=== PATIENT | male | born 1965 | race African-American/Black ===

== ENCOUNTER 2021-10-12 16:05 | Inpatient (IN) | payer SELFPAY ==
[2021-10-12] VITALS (8 sets, daily range): BP systolic 104–201; BP diastolic 67–90; PULSE 78–108; RESP 16–23; TEMP 36.2–36.6; O2SAT 89–100; BMI 51.2
--- NOTE | ~2021-10-12 | XR_ITS ---
EXAMINATION: XR chest 1V portable INDICATION: Hypoxia TECHNIQUE: Portable AP chest at 2113 hours COMPARISON: 08/03/2006 FINDINGS: There are patchy opacities throughout all lung zones. There is no pleural effusion or pneum othorax. Cardiomegaly is noted. There are changes of posterior fusion in the upper thoracic spine. IMPRESSION: 1. Diffuse lung disease, consistent with pneumonia and/or pulmonary edema. 2. Cardiomegaly. Reviewed, dictated and finalized at location F.
[2021-10-12] MEDS: SODIUM CHLORIDE 0.9% IV 1,000 ML 999 ML IV CONT (16:51)
[2021-10-12 16:52] LABS: Basophils Absolute Auto 0.1 K/mm3 (0.0-0.1); Basophils Percent Auto 0.8 % (0.2-1.2); Eosinophils Absolute Auto 0.3 K/mm3 (0-0.3); Eosinophils Percent Auto 2.8 % (0-4.4); Hematocrit 42.9 % (42.0-52.0); Hemoglobin 14.4 g/dL (14.0-18.0); Immature Granulocyte Absolute 0.04 K/mm3 (0.00-0.031); Immature Granulocyte Percent A 0.4 % (0-0.5); Lymphocytes Percent Auto 25.8 % (18.3-44.2); Mean Corpuscular HGB Conc 33.6 g/dl (32-36); Mean Corpuscular Hemoglobin 27.6 pg (26-34); Mean Corpuscular Volume 82.3 fl (80-100); Mean Platelet Volume 10.6 fl (7.4-10.4); Monocytes Absolute Auto 0.9 K/mm3 (0.1-0.6); Neutrophils Absolute Auto 5.4 K/mm3 (1.3-6.7); Neutrophils Percent Auto 60.2 % (45.5-73.1); Platelet Count Result 221 k/mm3 (150-375); Red Blood Count 5.21 M/mm3 (4.6-6.20); White Blood Count 8.9 K/mm3 (4.5-10.0)
[2021-10-12 16:56] LABS: Alveolar/Arterial O2 Gradient 26.2 mmHg; Base Excess ABG 3.4 mEq/l (+/-2.0); Device ROOM AIR; Fractional Inspired Oxygen 21 %; Modified Allen's Test Pass; Oxyhemoglobin 88.4 % THb (90.0-100.0); PO2 ABG 60.1 mmHg (80.0-100.0); PO2 FiO2 Ratio Arterial Blood 2.86 %; Site Drawn RIGHT RADIAL; Total Hemoglobin 15.3 g/dL (12.0-18.0)
[2021-10-12 16:59] LABS: Glucose Point of Care > 500 mg/dl (65-105)
[2021-10-12 17:06] LABS: Alanine Aminotransferase 41 U/L (4-50); Albumin Level 4.1 g/dL (3.5-5.1); Alkaline Phosphatase 225 U/L (38-126); Anion Gap 6 mmol/L (8-16); Aspartate Amino Transferase 38 U/L (17-59); Bilirubin,Total 0.2 mg/dL (0.2-1.3); Blood Urea Nitrogen 31 mg/dL (9-20); Calcium 8.9 mg/dL (8.4-10.2); Carbon Dioxide 30 mmol/L (22-30); Chloride 97 mmol/L (98-107); Estimated CRCL calculation 90 ml/min; Estimated Glomerular Filt Rate > 60; Potassium 4.7 mmol/L (3.4-5.0); Sodium 133 mmol/L (137-145)
[2021-10-12 17:06] LABS: Appearance Urine Clear (Clear); Bilirubin Urine Negative (Negative); Color Urine Yellow (Yellow); Glucose Urine UA 3+ mg/dL (Negative); Ketones Urine Negative (Negative); Leukocyte Esterase Ur Negative LEU/UL (Negative); Nitrate Urine Negative (Negative); Protein Urine Negative (Negative); Specific Grav Ur <= 1.005 (1.001-1.035); Urobilinogen Urine 0.2 mg/dL (<2.0)
[2021-10-12 17:14] LABS: Glucose 633 mg/dL (65-110)
[2021-10-12 17:21] LABS: Add Urine Microscopic? YES; Blood Urine Trace-Intact (Negative)
[2021-10-12 17:26] LABS: Mucus Urine Rare /lpf; RBC Urine 0-2 /hpf (0-2); WBC Urine 0-3 /hpf
--- NOTE | 2021-10-12 17:52 | ED.GENADULT ---
HPI - General Adult General Chief complaint: Recheck/Abnormal Lab/Rx Stated complaint: high blood sugar Time Seen by Provider: 10/12/21 16:33 Source: patient Mode of arrival: ambulatory Limitations: no limitations History of Present Illness HPI narrative: 56-year-old referred from urgent care with elevated blood sugar. Patient states for the past 1 week he has been having poorly for GI, polyuria and polydipsia. patient states that he has not seen a primary doctor for past 2-1/2 years. He denies any fever or chills. No history of nausea or vomiting. He states that he had a headache last night which is resolved Onset (ago): week(s) (1) Associated symptoms: denies other symptoms Treatments prior to arrival: none Related Data Allergies Allergy/AdvReac Type Severity Reaction Status Date / Time No Known Allergies Allergy Verified 10/12/21 16:20 Review of Systems Review of Systems: All systems reviewed & are unremarkable except as noted in HPI and below Constitutional: Constitutional: Reports no additional constitutional complaints Eyes: Eyes: Reports no additional eye complaints ENT: Reports system reviewed and no additional complaints, except as documented Respiratory: Respiratory: Reports no additional respiratory complaints Gastrointestinal: Gastrointestinal: Reports no additional gastrointestinal complaints Genitourinary: Genitourinary: Reports no additional male genitourinary complaints Musculoskeletal: Musculoskeletal: Reports no additional musculoskeletal complaints Integumentary/Breasts: Skin/Breast: Reports system reviewed and no additional complaints, except as docu Neurologic: Reports system reviewed and no additional complaints, except as documented Psychiatric: Psychiatric: Reports no additional psychiatric complaints [facility] Family History Family History Mother Family history of malignant neoplasm of breast in first degree relative Social History Social History Smoking status: Never smoker Alcohol intake: never Exam Narrative: GENERAL: Well-appearing, morbidly obese, and in no acute distress. HEAD: Normocephalic, atraumatic. EYES: PERRLA and EOMI. NECK: Supple. CHEST: Clear to auscultation. No respiratory distress. HEART: Regular rate and rhythm. No murmur heard. Normal peripheral pulses. ABDOMEN: Soft, nontender, morbidly obese abdomen, normal active bowel sounds. EXTREMITIES: Normal range of motion. No edema. SKIN: Warm, dry, no rash. NEURO: No focal deficits. Alert and oriented x3. PSYCH: Normal mood and affect. Course Course Emergency Course: Patient is asymptomatic at this time. Informed him about his lab work. We will start him on IV insulin. Discussed with Dr. Warner he agreed to admit the patient discussed with Francy agreed with admission Vital Signs Vital signs: Vital Signs Temperature 36.2 C L 10/12/21 16:09 Pulse Rate 78 10/12/21 16:09 Respiratory Rate 18 10/12/21 16:09 Blood Pressure 201/78 H 10/12/21 16:09 Pulse Oximetry 100 10/12/21 16:09 Temperature 36.2 C L 10/12/21 16:09 Pulse Rate 104 H 10/12/21 16:36 Respiratory Rate 23 H 10/12/21 16:36 Blood Pressure 146/90 H 10/12/21 16:36 Pulse Oximetry 94 10/12/21 16:36 Medical Decision Making Vital Signs Vital Signs: Vital Signs Temperature 36.2 C L 10/12/21 16:09 Pulse Rate 78 10/12/21 16:09 Respiratory Rate 18 10/12/21 16:09 Blood Pressure 201/78 H 10/12/21 16:09 Pulse Oximetry 100 10/12/21 16:09 Temperature 36.2 C L 10/12/21 16:09 Pulse Rate 104 H 10/12/21 16:36 Respiratory Rate 23 H 10/12/21 16:36 Blood Pressure 146/90 H 10/12/21 16:36 Pulse Oximetry 94 10/12/21 16:36 Lab Data Result diagrams: 10/12/21 16:45 10/12/21 16:45 Labs: Lab Results 10/12/21 10/12/21 10/12/21 Range/Units 16:09 16:45 16:45 WBC 8.9 (4.5-10.0) K/mm3 RBC 5.21 (4.6-6.20
[2021-10-12] MEDS: INSULIN HUMAN REGULAR (*BKC) 100 UNITS/ML 15 UNITS IV PUSH (17:56)
[2021-10-12] MEDS: INSULIN HUMAN REGULAR (*BKC) 100 UNITS in SODIUM CHLORIDE 0.9% IV 99 ML 11.5 UNITS IV CONT (18:19)
[2021-10-12] MEDS: SODIUM CHLORIDE 0.9% IV 1,000 ML 125 ML IV CONT ×2 (18:24→23:24)
--- NOTE | 2021-10-12 18:56 | ADMGEN ---
This patient, Aron Davila, was admitted to Intensive Care Unit-4. Patient/family oriented to hospital policies and general routines including ID bracelet, bed and alarms, visiting hours, pain management, procedures, bathroom and other care routines, personal items, smoking policy, room service/diet, and visiting hours. Information on how to activate the Rapid Response Team has been discussed. Patient/Family are encouraged to report perceived risks to care and to ask questions if they do not understand what they are told or what they should do. Report received from PHILOMENA Griffin @ [phone]. Pt to be brought up after shift change, per ED RN
[2021-10-12 19:53] LABS: Glucose Point of Care 453 mg/dl (65-105)
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
--- NOTE | 2021-10-12 20:05 | ADMGEN ---
This patient, Aron Davila, was admitted to Intensive Care Unit-4 at 1950 at 10/12/2021. Patient/family oriented to hospital policies and general routines including ID bracelet, bed and alarms, visiting hours, pain management, procedures, bathroom and other care routines, personal items, smoking policy, room service/diet, and visiting hours. Information on how to activate the Rapid Response Team has been discussed. Patient/Family are encouraged to report perceived risks to care and to ask questions if they do not understand what they are told or what they should do.
[2021-10-12] MEDS: SODIUM CHLORIDE 0.9% IV 2,000 ML 999 ML IV CONT (20:40)
[2021-10-12 21:18] LABS: Glucose Point of Care 326 mg/dl (65-105)
[2021-10-12 21:18] LABS: Glucose Point of Care 353 mg/dl (65-105)
[2021-10-12 21:31] LABS: Anion Gap 9 mmol/L (8-16); Blood Urea Nitrogen 28 mg/dL (9-20); Calcium 8.5 mg/dL (8.4-10.2); Carbon Dioxide 23 mmol/L (22-30); Chloride 104 mmol/L (98-107); Estimated CRCL calculation 112 ml/min; Estimated Glomerular Filt Rate > 60; Glucose 330 mg/dL (65-110); Potassium 4.6 mmol/L (3.4-5.0); Sodium 136 mmol/L (137-145)
[2021-10-12 22:09] LABS: Glucose Point of Care 260 mg/dl (65-105)
[2021-10-12 22:27] LABS: SARS-CoV-2 RNA PCR Negative
[2021-10-12 23:09] LABS: Glucose Point of Care 199 mg/dl (65-105)
[2021-10-13] VITALS (16 sets, daily range): BP systolic 127–154; BP diastolic 68–88; PULSE 83–106; RESP 16–22; TEMP 36.2–36.6; O2SAT 89–100
--- NOTE | 2021-10-13 | ECHO_ITS ---
Patient Info Name: Aron Davila Age: 56 years : 1965 Gender: Male Ht: 74 in Wt: 398 lbs BSA: 3.16 m2 HR: 87 bpm BP: 148 / 88 mmHg Technical Quality: Poor Exam Date: 10/13/2021 8:29 AM Exam Location: [facility] Patient Status: Inpatient Admit Date: 10/12/2021 Staff Ordering Physician: Umu Unger DO Communication Professor: Mya Bush RDCS Attending Provider: Mitali Bautista PA-C Referring Physician: Cornel TERAN; Exam Type: CA echo dop color flow w con Study Info Indications J96.21 - Acute and chronic respiratory failure with hypoxia Complete two-dimensional, color flow and Doppler transthoracic echocardiogram is performed with contrast to opacify the left ventricle and to improve the deliniation of the left ventricle endocardial borders. Contrast/Agitated Saline Contrast/Ag. Saline: Definity Amount: 10.00 ml Administered By: Mya Bush RDCS Existing IV Access: Yes IV Access Condition: patent with no signs of infiltration Reason for Poor Study: patient body habitus Summary 1. Technically suboptimal study due to poor sonographic images and related to body habitus. 2. Definity contrast administered improved wall motion interpretation. 3. Left ventricular chamber dimension is normal. 4. Left ventricular systolic function is normal, estimated at 65-70%. 5. The left ventricular diastolic function is grade I diastolic dysfunction. 6. E/e' 8 is minimally elevated. 7. No pulmonary hypertension, estimated pulmonary arterial systolic pressure is 27 mmHg. Left Ventricle Technically suboptimal study due to poor sonographic images and related to body habitus. Definity contrast administered improved wall motion interpretation. E/e' 8 is minimally elevated. Left ventricular chamber dimension is normal. Left ventricular systolic function is normal, estimated at 65-70%. The left ventricular diastolic function is grade I diastolic dysfunction. Right Ventricle Right ventricular chamber dimension is not well visualized. Left Atria Left atrial chamber dimension is normal. Right Atria Right atrial chamber dimension is not well visualized. Aortic Valve The aortic valve is probable trileaflet. There is no aortic valve stenosis. There is no aortic valve regurgitation. Pulmonic Valve The pulmonic valve is not well visualized. Mitral Valve There is no mitral valve stenosis. There is no mitral valve regurgitation. Tricuspid Valve There is no tricuspid valve regurgitation. No pulmonary hypertension, estimated pulmonary arterial systolic pressure is 27 mmHg. Pericardium/Pleural There is no pericardial effusion. Inferior Vena Cava Inferior vena cava is not well visualized. Aorta The aortic root size at the sinus of Valsalva is normal. Left Ventricular Outflow Tract Name Value Normal LVOT 2D LVOT Diameter 2.07 cm LVOT Doppler LVOT Peak Gradient 4 mmHg LVOT Mean Gradient 2 mmHg LVOT VTI 16.97 cm LVOT VTI/AV VTI Ratio
[2021-10-13] MEDS: metFORMIN HCL 500 MG TABLET PO ×3 (00:03→16:55)
[2021-10-13] MEDS: INSULIN GLARGINE (*BKC) 100 UNITS/ML 15 UNITS SUB-Q (01:39)
--- NOTE | 2021-10-13 02:58 | ECG_ITS ---
Measurements Intervals [place] Rate: 89 P: 47 SD: 170 QRS: 48 QRSD: 113 T: 19 QT: 369 QTc: 450 Interpretive Statements SINUS RHYTHM WANDERING BASELINE ARTIFACT MODERATE INTRAVENTRICULAR CONDUCTION DELAY [110+ ms QRS DURATION] NO PREVIOUS ECG AVAILABLE FOR COMPARISON Electronically Signed On 10-13-2021 16:47:58 CDT by Tam Wilkes M.D.
[2021-10-13 03:02] LABS: Glucose Point of Care 273 mg/dl (65-105)
--- NOTE | 2021-10-13 03:15 | PCRCNOTE ---
Stat EKG ordered by Dr. Unger. Pt is on sleep study. Dr. Unger said it is OK to wait until he comes off the sleep study in the AM. She needs the information for planning purposes.
[2021-10-13 05:59] LABS: Hematocrit 42.8 % (42.0-52.0); Hemoglobin 14.2 g/dL (14.0-18.0); Mean Corpuscular HGB Conc 33.2 g/dl (32-36); Mean Corpuscular Hemoglobin 27.3 pg (26-34); Mean Corpuscular Volume 82.1 fl (80-100); Mean Platelet Volume 10.4 fl (7.4-10.4); Platelet Count Result 213 k/mm3 (150-375); Red Blood Count 5.21 M/mm3 (4.6-6.20); Red Cell Distribution Width 13.7 % (11.5-14.5); White Blood Count 8.2 K/mm3 (4.5-10.0)
[2021-10-13 06:10] LABS: Anion Gap 7 mmol/L (8-16); Blood Urea Nitrogen 21 mg/dL (9-20); Calcium 8.2 mg/dL (8.4-10.2); Carbon Dioxide 29 mmol/L (22-30); Chloride 103 mmol/L (98-107); Cholesterol 149 mg/dL (0-200); Estimated CRCL calculation 128 ml/min; Estimated Glomerular Filt Rate > 60; Glucose 299 mg/dL (65-110); HDL Direct 35 mg/dL; Potassium 4.4 mmol/L (3.4-5.0); Sodium 139 mmol/L (137-145); Triglycerides 226 mg/dL (<150)
[2021-10-13 06:14] LABS: D Dimer 0.35 ug/mL (<0.48)
[2021-10-13 06:21] LABS: LDL Cholesterol Direct 70 mg/dL
[2021-10-13 06:26] LABS: NT Pro B Type Natriuretic Pept 17 pg/mL (5-100)
[2021-10-13 07:29] LABS: Glucose Point of Care 293 mg/dl (65-105)
[2021-10-13] MEDS: PERFLUTREN LIPID MICROSPHERES 1.5 ML VIAL DILUTED TO 10 ML TOTAL VOLUME IV PUSH (08:57)
--- NOTE | 2021-10-13 08:57 | IVDEFINITY ---
Prior to administration of IV Definity the patient was educated on the risks and benefits of the imaging enhancing agent including potential adverse side effects. The patient verbalized understanding. Allergies were verified. No exclusion criteria were identified and at least one of the following inclusion criteria were met: 1) physician request, 2) patient technically difficult to image (per the [place] [employer]ocardi[employer] guidelines of two or more segments not discernable within the apical view), or 3) questionable left ventricular function. ?
[2021-10-13] MEDS: INSULIN ASPART (*BKC) 100 UNITS/ML SUB-Q ×2 (09:12→19:18)
[2021-10-13] MEDS: ENOXAPARIN 40 MG/0.4 ML SYRINGE SUB-Q ×2 (09:14→21:37)
--- NOTE | 2021-10-13 10:32 | PM.IMPN ---
Progress Note: A&P Assessment and Plan (1) New onset type 2 diabetes mellitus: Code(s): E11.9 - Type 2 diabetes mellitus without complications Status: Acute Assessment and Plan: -Patient has new diagnosis of type 2 diabetes presenting with hyperglycemia. -Hgb A1c 10 -The patient's glucoses improved after IV fluid hydration and insulin. -The patient did not meet criteria for ICU admission. -Patient has been transferred to medical floor but due to cardiomegaly, hypoxia and abnormal chest x-ray will place patient on telemetry. -Patient has been started on metformin and Januvia for his and diabetes. Will also give 1 dose of Lantus 15 mg subQ x1. -Patient has been placed on high-dose sliding scale insulin with Accu-Cheks a.c. HS. -certified adaptive physical educator and broadcast traffic coordinator consults appreciated (2) Acute respiratory failure with hypoxia: Code(s): J96.01 - Acute respiratory failure with hypoxia Status: Acute Assessment and Plan: -Patient had hypoxia with chest x-ray findings concerning for pulmonary edema versus pneumonia. -COVID PCR was negative. -The patient does not look overtly fluid overloaded. He does not have any crackles on lung exam or increased work of breathing. -The patient is tolerating IV fluid hydration without increasing oxygen requirement. -echocardiogram pending -D-dimer negative -oxygen removed just prior to my arrival this morning, he is doing well in no acute respiratory distress Additional Plan Patient has excessive daytime sleepiness and snoring with body habitus consistent with likely obstructive sleep apnea. ApneaLink was been ordered but was disrupted as the patient was moved from the ICU to the medical floor to make room for the critical admission. Subjective Date/time seen: 10/13/21 10:32 Interval history: 56-year-old male with past medical history of morbid obesity admitted for new onset DM II and hyperglycemia. Pt states he continues to have all of the same symptoms he had on arrival including polydipsia, polyuria, LIZ, blurred vision. He does not note any improvement as of yet. No nausea, vomiting, abdominal pain. He is off of oxygen and denies cp/sob. Reports intermittent cough associated with allergies for a few weeks. Review of Systems Review of Systems: All systems reviewed & are unremarkable except as noted in HPI and below Exam Narrative: WEIGHT 145.9 kg BMI 42.2 General: Morbidly obese, no acute distress, non toxic HEENT: Good dentition, mucous membranes are moist, large neck circumference, pupils are equal and reactive Respiratory: Clear to auscultation bilaterally, no increased work of breathing Cardiovascular: Regular rate, regular rhythm, 2+ bilateral radial pedal pulses Gastrointestinal: Obese, soft, nontender, positive bowel sounds Skin: No jaundice, no pallor Musculoskeletal: No clubbing, cyanosis or edema Neurological: Alert and oriented, speech is clear, no facial asymmetry, no localizing neurologic deficits noted on limited exam Psychiatric: Appropriate mood and affect, pleasant and cooperative, judgment insight intact Objective Data Vital Signs Vital Signs: Vital Signs - 24 hr 10/12/21 16:09 10/12/21 16:36 10/12/21 18:22 Temperature 97.2 F L Pulse Rate 78 104 H 102 H Respiratory Rate 18 23 H 23 H Blood Pressure 201/78 H 146/90 H 125/68 Pulse Oximetry 100 94 95 10/12/21 18:30 10/12/21 20:00 10/12/21 20:15 Temperature 97.9 F Pulse Rate 108 H 91 98 Respiratory Rate 17 16 22 H Blood Pressure 104/67 141/84 H 137/75 Pulse Oximetry 97 94 89 L 10/12/21 22:00 10/12/21 23:15 10/13/21 00:00 Temperature 97.8 F Pulse Rate 85 83 Respiratory Rate 16 Blood Pressure 142/77 H Pulse Oximetry 91 95 10/13/21 02:00 10/13/21 03:05 10/13/21 04:00 Temperature 97.2 F L Pulse Rate 88 92 90 Respiratory Rate 20 Blood Pressure 154/82 H Pulse Oximetry 97 10/13/21 06:04
[2021-10-13 11:12] LABS: Glucose Point of Care 436 mg/dl (65-105)
[2021-10-13 11:17] LABS: Glucose Point of Care 417 mg/dl (65-105)
[2021-10-13] MEDS: INSULIN ASPART (*BKC) 100 UNITS/ML 12 UNITS SUB-Q (11:38)
--- NOTE | 2021-10-13 13:37 | PCCCNOTE ---
On 10/13/21, the student, [Marnie Walls ], provided care and completed [facility] documentation on this patient. I have reviewed the student's documentation and agree with the findings.
--- NOTE | 2021-10-13 13:47 | PCDIET ---
Dietitian consult for New Diabetic Education. See Nutritional Teaching Intervention. Thank you for the consult.
[2021-10-13 16:12] LABS: Glucose Point of Care 409 mg/dl (65-105)
[2021-10-13 16:52] LABS: Potassium 4.6 mmol/L (3.4-5.0)
[2021-10-13] MEDS: INSULIN ASPART (*BKC) 100 UNITS/ML 15 UNITS SUB-Q (16:54)
[2021-10-13 16:56] LABS: Magnesium 1.9 mg/dL (1.6-2.3)
[2021-10-13] MEDS: SODIUM CHLORIDE 0.9% IV 1,000 ML 100 ML IV CONT (16:56)
[2021-10-13 19:00] LABS: Glucose Point of Care 389 mg/dl (65-105)
[2021-10-13] MEDS: INSULIN GLARGINE (*BKC) 100 UNITS/ML 10 UNITS SUB-Q (21:33)
[2021-10-13 21:52] LABS: Glucose Point of Care 319 mg/dl (65-105)
[2021-10-14] VITALS (11 sets, daily range): BP systolic 135–156; BP diastolic 73–93; PULSE 81–100; RESP 16–20; TEMP 36.1–37; O2SAT 92–98; BMI 54.5
[2021-10-14 05:51] LABS: Basophils Absolute Auto 0.1 K/mm3 (0.0-0.1); Basophils Percent Auto 0.7 % (0.2-1.2); Eosinophils Absolute Auto 0.3 K/mm3 (0-0.3); Eosinophils Percent Auto 3.5 % (0-4.4); Hematocrit 40.3 % (42.0-52.0); Hemoglobin 13.3 g/dL (14.0-18.0); Immature Granulocyte Absolute 0.03 K/mm3 (0.00-0.031); Immature Granulocyte Percent A 0.4 % (0-0.5); Lymphocytes Absolute Auto 2.24 K/mm3 (0.9-3.2); Lymphocytes Percent Auto 31.8 % (18.3-44.2); Mean Corpuscular Hemoglobin 27.6 pg (26-34); Mean Corpuscular Volume 83.6 fl (80-100); Mean Platelet Volume 9.8 fl (7.4-10.4); Monocytes Absolute Auto 0.8 K/mm3 (0.1-0.6); Monocytes Percent Auto 10.8 % (2.6-8.5); Neutrophils Absolute Auto 3.7 K/mm3 (1.3-6.7); Neutrophils Percent Auto 52.8 % (45.5-73.1); Platelet Count Result 192 k/mm3 (150-375); Red Blood Count 4.82 M/mm3 (4.6-6.20); Red Cell Distribution Width 13.8 % (11.5-14.5); White Blood Count 7.1 K/mm3 (4.5-10.0)
[2021-10-14 06:03] LABS: Alanine Aminotransferase 38 U/L (4-50); Albumin Level 3.4 g/dL (3.5-5.1); Alkaline Phosphatase 118 U/L (38-126); Anion Gap 6 mmol/L (8-16); Aspartate Amino Transferase 40 U/L (17-59); Bilirubin,Total 0.6 mg/dL (0.2-1.3); Blood Urea Nitrogen 16 mg/dL (9-20); Calcium 7.4 mg/dL (8.4-10.2); Carbon Dioxide 26 mmol/L (22-30); Chloride 103 mmol/L (98-107); Estimated CRCL calculation 157 ml/min; Estimated Glomerular Filt Rate > 60; Glucose 311 mg/dL (65-110); Potassium 3.9 mmol/L (3.4-5.0); Sodium 135 mmol/L (137-145)
[2021-10-14] MEDS: SODIUM CHLORIDE 0.9% IV 1,000 ML 100 ML IV CONT ×3 (06:13→20:21)
[2021-10-14 07:30] LABS: Glucose Point of Care 310 mg/dl (65-105)
[2021-10-14] MEDS: metFORMIN HCL 500 MG TABLET PO ×2 (07:58→16:22)
[2021-10-14] MEDS: ENOXAPARIN 40 MG/0.4 ML SYRINGE SUB-Q ×2 (07:58→20:22)
[2021-10-14] MEDS: INSULIN ASPART (*BKC) 100 UNITS/ML SUB-Q ×3 (08:00→16:20)
[2021-10-14] MEDS: INSULIN GLARGINE (*BKC) 100 UNITS/ML 10 UNITS SUB-Q ×2 (08:00→20:22)
[2021-10-14] MEDS: INSULIN ASPART (*BKC) 100 UNITS/ML 10 UNITS SUB-Q ×3 (08:00→16:22)
--- NOTE | 2021-10-14 08:52 | PM.IMPN ---
Progress Note: A&P Assessment and Plan (1) New onset type 2 diabetes mellitus: Code(s): E11.9 - Type 2 diabetes mellitus without complications Status: Acute Assessment and Plan: -Patient has new diagnosis of type 2 diabetes presenting with hyperglycemia. -Hgb A1c 10 -The patient's glucoses improved initially with IV fluid hydration and insulin. -Patient was started on metformin and Januvia for his new onset diabetes. Also initially gave 1 dose of Lantus 15 mg subQ x1. -Patient was placed on high-dose sliding scale insulin with Accu-Cheks a.c. HS. -nurse educator and liquor inspector consults placed -Pt still continues to run quite high in the high 300s, low 400s. We have added Lantus 10 units QHS. I also added 10 units TIDWM scheduled in addition to the high dose SS. Will continue to monitor and make adjustments until he is in acceptable range to be discharged home with home health. (2) Acute respiratory failure with hypoxia: Code(s): J96.01 - Acute respiratory failure with hypoxia Status: Acute Assessment and Plan: -Patient had hypoxia with chest x-ray findings concerning for pulmonary edema versus pneumonia. -COVID PCR was negative. -The patient does not look overtly fluid overloaded. He does not have any crackles on lung exam or increased work of breathing. -The patient is tolerating IV fluid hydration without increasing oxygen requirement. -echocardiogram reviewed, EF of 65/70% -D-dimer negative -oxygen removed yesterday, he is doing well in no acute respiratory distress Additional Plan Patient has excessive daytime sleepiness and snoring with body habitus consistent with likely obstructive sleep apnea. ApneaLink was been ordered but was disrupted as the patient was moved from the ICU to the medical floor to make room for the critical admission. Will attempt to complete the study tonight. Subjective Date/time seen: 10/14/21 08:52 Interval history: 56-year-old male with past medical history of morbid obesity admitted for new onset DM II and hyperglycemia. Polyuria and polydipsia have improved. No abd pain, N/V. No cp/sob, off of oxygen. Sugars still running high. Review of Systems Review of Systems: All systems reviewed & are unremarkable except as noted in HPI and below Exam Narrative: WEIGHT 145.9 kg BMI 42.2 General: Morbidly obese, no acute distress, non toxic HEENT: Good dentition, mucous membranes are moist, large neck circumference, pupils are equal and reactive Respiratory: Clear to auscultation bilaterally, no increased work of breathing Cardiovascular: Regular rate, regular rhythm, 2+ bilateral radial pedal pulses Gastrointestinal: Obese, soft, nontender, positive bowel sounds Skin: No jaundice, no pallor Musculoskeletal: No clubbing, cyanosis or edema Neurological: Alert and oriented, speech is clear, no facial asymmetry, no localizing neurologic deficits noted on limited exam Psychiatric: Appropriate mood and affect, pleasant and cooperative, judgment insight intact Objective Data Vital Signs Vital Signs: Vital Signs - 24 hr 10/13/21 09:15 10/13/21 09:30 10/13/21 09:43 Temperature 97.8 F Pulse Rate 98 Respiratory Rate 16 Blood Pressure 138/68 Pulse Oximetry 99 95 95 10/13/21 12:00 10/13/21 14:20 10/13/21 16:00 Temperature 97.7 F Pulse Rate 100 99 100 Respiratory Rate 20 Blood Pressure 135/80 Pulse Oximetry 97 10/13/21 17:20 10/13/21 19:33 10/13/21 20:00 Temperature 97.9 F 97.6 F Pulse Rate 100 94 106 H Respiratory Rate 20 20 Blood Pressure 127/70 149/86 H Pulse Oximetry 94 97 10/13/21 20:12 10/14/21 00:00 10/14/21 04:00 Temperature 98.6 F 97.1 F L Pulse Rate 93 92 93 Respiratory Rate 20 20 Blood Pressure 150/84 H 145/83 H Pulse Oximetry 93 94 92 Intake/Output Intake/Output: Intake & Output 10/11/21 10/12/21 10/13/21 10/14/21 23:59 23:59 23:59 23:59 I
[2021-10-14 11:32] LABS: Glucose Point of Care 361 mg/dl (65-105)
--- NOTE | 2021-10-14 13:46 | PCCCNOTE ---
On 10/14/21, the student, [Marnie Walls ], provided care and completed [facility] documentation on this patient. I have reviewed the student's documentation and agree with the findings.
[2021-10-14 16:09] LABS: Glucose Point of Care 279 mg/dl (65-105)
[2021-10-14 20:27] LABS: Glucose Point of Care 258 mg/dl (65-105)
--- NOTE | 2021-10-14 21:24 | PCRCNOTE ---
Pt refusing apnea link study on 10/14. Pt states that he does not sleep very much, that he is up and down from bed and does not think he will be able to sleep for the study.
[2021-10-15] VITALS (7 sets, daily range): BP systolic 132–150; BP diastolic 82–89; PULSE 60–104; RESP 20–24; TEMP 36.3–36.8; O2SAT 91–97
[2021-10-15] MEDS: SODIUM CHLORIDE 0.9% IV 1,000 ML 100 ML IV CONT (05:18)
[2021-10-15 06:25] LABS: Basophils Absolute Auto 0.1 K/mm3 (0.0-0.1); Basophils Percent Auto 0.8 % (0.2-1.2); Eosinophils Absolute Auto 0.2 K/mm3 (0-0.3); Hematocrit 38.9 % (42.0-52.0); Hemoglobin 12.8 g/dL (14.0-18.0); Immature Granulocyte Absolute 0.03 K/mm3 (0.00-0.031); Immature Granulocyte Percent A 0.5 % (0-0.5); Lymphocytes Absolute Auto 2.12 K/mm3 (0.9-3.2); Lymphocytes Percent Auto 33.5 % (18.3-44.2); Mean Corpuscular HGB Conc 32.9 g/dl (32-36); Mean Corpuscular Hemoglobin 27.5 pg (26-34); Mean Corpuscular Volume 83.5 fl (80-100); Mean Platelet Volume 9.9 fl (7.4-10.4); Monocytes Absolute Auto 0.8 K/mm3 (0.1-0.6); Neutrophils Absolute Auto 3.2 K/mm3 (1.3-6.7); Neutrophils Percent Auto 50.2 % (45.5-73.1); Platelet Count Result 175 k/mm3 (150-375); Red Blood Count 4.66 M/mm3 (4.6-6.20); Red Cell Distribution Width 13.9 % (11.5-14.5); White Blood Count 6.3 K/mm3 (4.5-10.0)
[2021-10-15 06:34] LABS: Anion Gap 3 mmol/L (8-16); Blood Urea Nitrogen 12 mg/dL (9-20); Calcium 7.6 mg/dL (8.4-10.2); Carbon Dioxide 27 mmol/L (22-30); Chloride 106 mmol/L (98-107); Estimated CRCL calculation 141 ml/min; Estimated Glomerular Filt Rate > 60; Glucose 263 mg/dL (65-110); Sodium 136 mmol/L (137-145)
[2021-10-15 07:29] LABS: Glucose Point of Care 279 mg/dl (65-105)
[2021-10-15] MEDS: INSULIN ASPART (*BKC) 100 UNITS/ML 10 UNITS SUB-Q ×2 (08:02→11:58)
[2021-10-15] MEDS: INSULIN ASPART (*BKC) 100 UNITS/ML SUB-Q ×2 (08:03→11:57)
[2021-10-15] MEDS: metFORMIN HCL 500 MG TABLET PO (08:05)
[2021-10-15] MEDS: ENOXAPARIN 40 MG/0.4 ML SYRINGE SUB-Q (08:05)
--- NOTE | 2021-10-15 09:45 | PM.DS ---
DS: Admitting Diagnosis Discharge Date 10/15/21 0945 Admitting Diagnosis New onset diabetes DS: Discharge Diagnosis Discharge Diagnosis (1) New onset type 2 diabetes mellitus: Code(s): E11.9 - Type 2 diabetes mellitus without complications Status: Acute Assessment and Plan: -Patient has new diagnosis of type 2 diabetes presenting with hyperglycemia. -Hgb A1c 10 -The patient's glucoses improved initially with IV fluid hydration and insulin. -Patient was started on metformin and Januvia for his new onset diabetes. -Patient was placed on high-dose sliding scale insulin with Accu-Cheks a.c. HS. -clinical educator and spool worker consults placed -Lantus increased to 25 units per day, 10 units of aspart with meals plus sliding scale Insulin role for 24 hours was 71 units (2) Acute respiratory failure with hypoxia: Code(s): J96.01 - Acute respiratory failure with hypoxia Status: Acute Assessment and Plan: -Patient had hypoxia with chest x-ray findings concerning for pulmonary edema versus pneumonia. -COVID PCR was negative. -The patient does not look overtly fluid overloaded. He does not have any crackles on lung exam or increased work of breathing. -The patient is tolerating IV fluid hydration without increasing oxygen requirement. -echocardiogram reviewed, EF of 65/70% -D-dimer negative -oxygen removed yesterday, he is doing well in no acute respiratory distress DS: Summary Hospital Course Hospital Course: Patient is a 56-year-old male with no significant past medical history who presented the ED from Urgent Care for uncontrolled glucose. Patient not seen a physician 2.5 years. Patient was complaining of polydipsia and polyuria and glucose upon arrival was 633. Patient was transferred ICU on an insulin drip and fluids for hydration. Glucose has decreased and is currently at 279 today. Patient has been started on long-acting and short-acting insulins. Patient is also been started on Januvia and metformin. Patient denies any other symptoms of chest pain, shortness of breath, nausea, diarrhea, constipation, weakness or fatigue. Patient is ready to go. Hemoglobin A1c was 10.0. assistant health educator and dietitian have both been consulted and saw the patient and recommendations had been given. Patient has been given education about glucose meter and monitoring glucose. Exercise and diet will also be ramirez for the patient success. 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 Patient does seem safe to go did. I did re-educate the patient about keeping control over his glucose as this is important for his success. Labs and vital signs remained stable today. Status at Discharge Functional status at discharge: independent ambulation Overall status at discharge: patient is progressing back to baseline Time Spent with Patient Time attestation: Total time spent providing and/or coordinating discharge services: 43 minutes Time spent: Greater than 30 minutes Specific discharge activities: Diagnostic testing, chart review, developing a treatment plan, education, care coordination documentation, physical exam, result review Exam Const: General: cooperative, healthy appearing, no acute distress, well developed, alert and awake Nutritional Appearance: well nourished Orientation/consciousness: patient oriented x3 Limitations: no limitations HENMT: Head: normal to inspection Ears: hearing grossly normal bilaterally General nose exam: Normal external nose present Mouth: Yes Normal oral and palatal mucosa present, Yes lip normal and Yes tongue normal Teeth and gingiva: abnormal tooth and associated gingiva and poor dentition Eyes: General: appearance normal, both eyes and all related structures Neck: Neck: normal visual inspection, full ROM, trachea midline and supple Chest: Chest palpation & insp
[2021-10-15] MEDS: INSULIN GLARGINE (*BKC) 100 UNITS/ML 15 UNITS SUB-Q (09:54)
[2021-10-15 11:39] LABS: Glucose Point of Care 308 mg/dl (65-105)
== END 2021-10-15 15:00 | disposition home or self-care (01) | DRG 420 ==
LOC: ANHED 17:56 → ANHICU 18:50 → ANH3MED 10-13 02:45 → ANH2MED 10-13 03:42
PROVIDERS: Internal Medicine; Physician Assistant; Admitting Provider Family Medicine; Emergency Provider Family Medicine; PCP Emergency Medicine; Visit Provider Nurse Practitioner
DX: E11.00 Type 2 diabetes mellitus with hyperosmolarity without nonketotic hyperglycemic-hyperosmolar coma (NKHHC) (principal); J96.01 Acute respiratory failure with hypoxia; E66.2 Morbid (severe) obesity with alveolar hypoventilation; G47.33 Obstructive sleep apnea (adult) (pediatric); Z68.43 Body mass index [BMI] 50.0-59.9, adult; Z98.1 Arthrodesis status; Z20.822 Contact with and (suspected) exposure to COVID-19
CPT/HCPCS: 36415; 36600; 71045; 80048; 80053; 80061; 81001; 82805; 82948; 83036; 83735; 83880; 84132; 85025; 85027; 85380; 93005; 94762; 96360; 96361; 96365; 96366; 96372; 96374; 99285; A9270; C8929; C9803; G0378; G0379; J1650; J1815; J7030; Q9957; U0003; U0005

== ENCOUNTER 2023-08-30 14:14 | Outpatient (CLI) | payer SELFPAY ==
--- NOTE | ~2023-08-30 | XR_ITS ---
EXAMINATION: XR chest 2V, XR thoracic spine 2V DATE: 08/30/2023 14:55 INDICATION: Upper back pain TECHNIQUE: 1. Frontal and lateral views of the chest were obtained. 2. AP and lateral views of the thoracic spine were obtained. COMPARISON: Chest radiograph dated 08/03/2006 FINDINGS: Chest: The lungs remain clear with no focal airspace opacities, pulmonary edema, pleural effusion or pneumot horax. The cardiomediastinal silhouette is normal. Visualized bones and soft tissues are unremarkable . Thoracic spine: Posterior spinal fusion with bilateral vertical geno and pedicle screw fixation at T1-T4. Alignment is normal. Vertebral body heights are normal. There is moderate disc height loss at T4-T5 through T6-T7 with mild disc height loss at the majority the remaining levels. There are bridging osteophytes at m ultiple levels consistent with diffuse idiopathic skeletal hyperostosis (DISH). IMPRESSION: 1. No acute cardiopulmonary disease. 2. Mild to moderate thoracic spondylosis with instrumented T1-T4 posterior spinal fusion. Reviewed, dictated and finalized at location A. OR RESEARCH MANAGER IMPRESSION: 1. No acute cardiopulmonary disease. 2. Mild to moderate thoracic spondylosis with instrumented T1-T4 posterior spin al fusion.
== END 2023-08-30 14:15 ==
PROVIDERS: PCP Emergency Medicine; Visit Provider Emergency Medicine
DX: M54.2 Cervicalgia (principal); M47.894 Other spondylosis, thoracic region; Z98.1 Arthrodesis status
CPT/HCPCS: 71046; 72070